=== PATIENT | female | born 1975 | race Caucasian/White ===

== ENCOUNTER 2020-11-03 15:20 | Emergency (ER) | payer BC ==
[2020-11-03 15:36] VITALS: BP 112/68
[2020-11-03] MEDS ORDERED: DOXYCYCLINE 100 MG TABLET PO STA (16:00)
--- NOTE | 2020-11-03 16:03 | ED Physician Documentation ---
PD HPI WOUND RECHECK - Stated complaint Stated Complaint: BED SORE - Chief complaint Chief Complaint: Wound - Histroy obtained from History obtained from: Patient - Additional information Additional information: 45-year-old woman with history of MS, wheelchair-bound. 1 month history of pressure ulcers on the low back. No fevers. Sent from urgent care for evaluation. Review of Systems Constitutional: reports: Reviewed and negative Eyes: reports: Reviewed and negative Ears: reports: Reviewed and negative Nose: reports: Reviewed and negative PD PAST MEDICAL HISTORY - Present Medications Home Medications: Ambulatory Orders Medication Instructions Recorded Confirmed Doxycycline Hyclate 100 mg PO BID #20 11/03/20 - Allergies Allergies/Adverse Reactions: Allergies Allergy/AdvReac Type Severity Reaction Status Date / Time Penicillins Allergy Hives Verified 11/03/20 15:37 Sulfa (Sulfonamide Allergy Hives Verified 11/03/20 15:37 Antibiotics) - Social History Does the pt smoke?: No Smoking Status: Never smoker PD ED PE NORMAL - Vitals Vital signs reviewed: Yes - General General: Alert and oriented X 3, No acute distress - Derm Derm: Other (Bilateral gluteal ulcers, stage II, the right one is about 3 cm in diameter, maybe 1 cm deep, the left one is about 1-1/2 cm in diameter, half centimeter deep. Mild surrounding cellulitis.) - Neuro Neuro: Alert and oriented X 3, Normal speech Results - Vitals Vitals: Vital Signs - 24 hr 11/03/20 15:31 Temperature 36.7 C Heart Rate 96 Respiratory 16 Rate Blood Pressure 112/68 O2 Saturation 96 Oxygen O2 Source Room air PD MEDICAL DECISION MAKING - ED course ED course: She did not want blood work, we will treat for cellulitis. Discussed with her that she needs to follow-up with wound care. Departure - Departure Disposition: Home, Self Care Clinical Impression: Pressure ulcer Qualifiers: Pressure injury location: unspecified location Pressure injury stage: stage 2 Qualified Code(s): L89.92 - Pressure ulcer of unspecified site, stage 2 Condition: Good Record reviewed to determine appropriate education?: Yes Instructions: Pressure Ulcer Tx Clean Dress Prescriptions: Doxycycline Hyclate 100 mg PO BID #20 Comments: As discussed, you probably need to establish with [place] care[place] need to send in orders. The phone number is [phone] [facility] [address]. Return if worsening. We are performing a wound culture, the results should be done in 48-72 hours. If antibiotic change is necessary we will call you. Return if worse in the meantime, especially if you develop increased pain, fevers, cannot keep down the medication. Otherwise follow-up with your physician in approximately 2-3 days.
== END 2020-11-03 16:31 | disposition home or self-care (01) ==
LOC: ED 15:20
DX: L89.322 Pressure ulcer of left buttock, stage 2 (principal); L89.312 Pressure ulcer of right buttock, stage 2; L03.317 Cellulitis of buttock; G35 Multiple sclerosis; Z99.3 Dependence on wheelchair; Z88.0 Allergy status to penicillin; Z88.2 Allergy status to sulfonamides
CPT/HCPCS: 87070; 87077; 87181; 87205; 99283; A9270; 80048; 83605; 83735; 85025; 85651; 86140